=== PATIENT | female | born 1965 | race American Indian/Alaskan Native ===

== ENCOUNTER 2017-04-16 12:19 | Inpatient (IN) | payer OTHER ==
[2017-04-16 12:56] LABS: Basophils % (Auto) 0.4 % (0.0-1.8); Eosinophils % (Auto) 0.5 % (0.0-4.3); Mean Corpuscular HGB Conc 33 % (30-34); Mean Corpuscular Hemoglobin 26 pg (28-32); Mean Corpuscular Volume 81 fl (79-97); Platelet Count 280 K/mm3 (140-440); Red Blood Count 4.55 M/mm3 (3.65-5.03); Red Cell Distribution Width 14.5 % (13.2-15.2); White Blood Count 6.3 K/mm3 (4.5-11.0)
--- NOTE | 2017-04-16 12:56 | Cat Scan Report ---
CT HEAD WITHOUT CONTRAST INDICATION: Neurologic deficits. COMPARISON: None similar at this institution. FINDINGS: Noncontrast head CT demonstrates normal, symmetric ventricles and sulci without acute or recent infarct, hemorrhage, mass effect or midline shift. No abnormal extra-axial fluid collections. Posterior fossa structures and basilar cisterns appear within normal limits. Symmetric eye globes. Approximately 2.8 x 2.3 cm adenoids may be directly visualized. Clear paranasal sinuses and mastoid air cells. Intact calvarium. Normal overlying scalp soft tissues. Mid to lower cervical spondylosis. CONCLUSION: No acute intracranial CT abnormality, as described. Thank you for the opportunity to participate in this patient's care.
[2017-04-16 13:07] LABS: INR 0.99 (0.87-1.13); Partial Thromboplastin Time 31.2 Sec. (24.2-36.6)
[2017-04-16 13:15] LABS: Anion Gap 19 mmol/L; BUN/Creatinine Ratio 21.66; Blood Urea Nitrogen 13 mg/dL (7-17); Calcium 9.2 mg/dL (8.4-10.2); Carbon Dioxide 24 mmol/L (22-30); Chloride 102.5 mmol/L (98-107); Glucose 113 mg/dL (65-100); Potassium 3.8 mmol/L (3.6-5.0); Sodium 142 mmol/L (137-145)
[2017-04-16] MEDS ORDERED: ASPIRIN PO ONE (15:42)
--- NOTE | 2017-04-16 15:48 | Emergency Department Report ---
HPI - General Chief Complaint: Neuro Symptoms/Deficit Time Seen by Provider: 04/16/17 15:31 - HPI HPI: Room 6 The patient is a 51-year-old female presenting with a chief complaint of left- sided numbness and chest pain. Patient states her symptoms began 6 days ago with left arm and left leg numbness. The patient states 4 days ago she saw her biscuit packer was given a prescription of a muscle relaxer and pain medication. Patient states the medication only made her sleepy but her symptoms persisted. Patient states this morning at approximately 11:30 left arm and left leg numbness increased and she exhibited weakness on that side. The patient states she also developed substernal chest tightness associated with shortness of breath and nausea. Patient denies vomiting or diaphoresis. The patient gives her chest pain a score of 6-7/10 The patient states her last stress test occurred approximately 2 years ago she has never had a cardiac catheterization. Location: [see above] Duration: [see above] Quality: Tightness, numbness Severity: 6-7/10 Modifying factors: [see above] Context: [see above] Mode of transportation: Unknown ED Past Medical Hx - Past Medical History Hx Hypertension: Yes Hx GERD: Yes Hx Headaches / Migraines: Yes Additional medical history: TIA X 3. ENLARGED HEART - Surgical History Additional Surgical History: HYSTERECTOMY - Family History Family history: no significant - Social History Smoking Status: Never Smoker Substance Use Type: None (denies illicit drug use) - Medications Home Medications: Home Medications Medication Instructions Recorded Confirmed Last Taken Type Amlodipine/Valsartan/Hcthiazid 1 each PO QDAY 04/16/17 04/16/17 04/15/17 History [Exforge Hct 10-320-25 mg Tab] Atenolol [Tenormin] 100 mg PO DAILY 04/16/17 04/16/17 04/15/17 History Cyclobenzaprine [Flexeril] 10 mg PO TID 04/16/17 04/16/17 04/15/17 History Naproxen [Naprosyn] 500 mg PO BID 04/16/17 04/16/17 04/15/17 History ED Review of Systems ROS: Stated complaint: POSS STROKE Other details as noted in HPI Comment: All other systems reviewed and negative Constitutional: denies: chills, diaphoresis, fever Eyes: denies: eye pain, eye discharge, vision change ENT: denies: ear pain, throat pain Respiratory: shortness of breath Cardiovascular: chest pain Endocrine: no symptoms reported Gastrointestinal: denies: abdominal pain, nausea, diarrhea Genitourinary: denies: urgency, dysuria, discharge Musculoskeletal: denies: back pain, joint swelling, arthralgia Skin: denies: rash, lesions Neurological: weakness, numbness. denies: headache Psychiatric: denies: anxiety, depression Hematological/Lymphatic: denies: easy bleeding, easy bruising Physical Exam - Physical Exam Vital Signs: Vital Signs 04/16/17 12:25 Temperature 98.0 F Pulse Rate 87 Respiratory 18 Rate Blood Pressure 159/98 O2 Sat by Pulse 100 Oximetry Physical Exam: GENERAL: The patient is well-developed well-nourished female lying on stretcher not appearing to be in acute distress. [] HEENT: Normocephalic. Atraumatic. Extraocular motions are intact. Patient has moist mucous membranes. NECK: Supple. Trachea midline CHEST/LUNGS: Clear to auscultation. There is no respiratory distress noted. HEART/CARDIOVASCULAR: Regular. There is no tachycardia. There is no gallop rub or murmur. ABDOMEN: Abdomen is soft, nontender. Patient has normal bowel sounds. There is no abdominal distention. SKIN: There is no rash. There is no edema. There is no diaphoresis. NEURO: The patient is awake, alert, and oriented. The patient is cooperative. Cranial nerves II through XII grossly intact with exception of decreased sensation on the left V1, V2, V3 distribution. Decreased sensation left upper extremity and left lower extremity. There is no pronator drift. Patient exhibits trace difficulty flexing left lower extremity at the hip and knee against gravity. The patient has normal speech. Decreased sensation left arm and left leg MUSCULOSKELETAL: There is no evidence of acute injury. ED Course Vital Signs 04/16/17 12:25 Temperature 98.0 F Pulse Rate 87 Respiratory 18 Rate Blood Pressure 159/98 O2 Sat by Pulse 100 Oximetry ED Medical Decision Making - Lab Data Result diagrams: 04/16/17 12:41 04/16/17 12:41 Laboratory Tests 04/16/17 04/16/17 04/16/17 12:41 12:41 12:41 WBC 6.3 RBC 4.55 Hgb 12.0 Hct 37.0 MCV 81 MCH 26 L MCHC 33 RDW 14.5 Plt Count 280 Lymph % (Auto) 32.4 [place] % (Auto) 4.6 Eos % (Auto) 0.5 Baso % (Auto) 0.4 Lymph # 2.0 [place] # 0.3 Eos # 0.0 Baso # 0.0 Seg Neutrophils % 62.1 Seg Neutrophils # 3.9 PT 13.6 INR 0.99 APTT 31.2 Thrombin Time Sodium 142 Potassium 3.8 Chloride 102.5 Carbon Dioxide 24 Anion Gap 19 BUN 13 Creatinine 0.6 L Estimated GFR > 60 BUN/Creatinine Ratio 21.66 Glucose 113 H Calcium 9.2 Troponin T < 0.010 04/16/17 12:41 WBC RBC Hgb Hct MCV MCH MCHC RDW Plt Count Lymph % (Auto) [place] % (Auto) Eos % (Auto) Baso % (Auto) Lymph # [place] # Eos # Baso # Seg Neutrophils % Seg Neutrophils # PT INR APTT Thrombin Time 14.7 L Sodium Potassium Chloride Carbon Dioxide Anion Gap BUN Creatinine Estimated GFR BUN/Creatinine Ratio Glucose Calcium Troponin T - EKG Data -: EKG Interpreted by Me EKG shows normal: sinus rhythm Rate: normal - EKG Data When compared to previous EKG there are: previous EKG unavailable Interpretation: other (no ischemic changes seen) - Radiology Data Radiology results: report reviewed (CT head), image reviewed (CT head, chest x- ray) interpreted by me: Chest x-ray-no focal infiltrates, no pneumothorax CT head (read by radiologist)-no acute intracranial CT abnormality. - Differential Diagnosis CVA, ACS, pericarditis, GERD Critical care attestation.: If time is entered above; I have spent that time in minutes in the direct care of this critically ill patient, excluding procedure time. ED Disposition Clinical Impression: CVA (cerebral vascular accident), Chest pain Disposition: DC-[id number] OP ADMIT IP TO THIS HOSP Is pt being admited?: Yes Does the pt Need Aspirin: Yes Condition: Fair Instructions: Chest Pain (ED) Referrals: DR EDUARDO [Other] - 3-5 Days Time of Disposition: 15:49 (hospitalist paged)
--- NOTE | 2017-04-16 15:57 | Admit Criteria Form ---
Admission Criteria Documentation: NEUROLOGY GRG Clinical Indications for Admission to Inpatient Care (Place ' X' for any and all applicable criteria): Hospital admission is needed for appropriate care of the patient because of 1 or more of the following: [ ]I. Encephalitis [ ]II. Severe [employer] infections indicated by 1 or more of the following(1)(2)(3) : [ ]a) Intracranial abscess [ ]b) Spinal abscess or myelitis [ ]c) Tuberculous or other nonbacterial, nonviral [employer] infection(8) [ ]III. Vasculitis and 1 or more of the following(14)(15): []a) Altered mental status that is severe or persistent or other acute neurologic change []b) Psychosis []c) Seizure [ ]IV. Status epilepticus or repetitive seizures not controlled with emergent treatment [A] (7)(8) [ ]V. Altered mental status that is severe or persistent [ ]. Transient alteration in consciousness with high-risk etiology; examples include (12)(13): [ ]a) Cardiovascular source [ ]b) Cataplexy [ ]VII. Cerebral aneurysm requiring ANY ONE of the following(14): [ ]a) IV antihypertensives or vasoactive agents [ ]b) Sedation and analgesia for suspected leak [ ]c) Need for external ventricular drainage and cerebral perfusion pressure monitoring [ ]d) Emergent evaluation to determine need for surgical clipping or endovascular coiling by interventional radiology. If surgery is required ( Also use Craniotomy, Supratentorial, for Surgery of Bleeding Intracranial Aneurysm (for bleeding aneurysm) or Craniotomy, Supratentorial (for nonbleeding aneurysm) as appropriate. [ ]VIII. New-onset severe neurologic symptom requiring inpatient care indicated by ANY ONE of the following: [ ]a) Aphasia(15) [ ]b) Weakness (grade 3 or less) [ ]c) Paralysis (eg, hemiplegia) [ ]d) Spasticity(16) [ ]e) Dystonia [ ]e) Ataxia(17) [ ]f) Amnesia(18) [ ]g) Involuntary movements(19) [ ]h) Vertigo [ ] Visual loss [ ]i) Other severe neurologic finding (eg, papilledema, mass effect on imaging, myoclonus not treatable at alternative level of care (eg, observation care) [ ]IX. Guillain-Waddy syndrome(20) [ ]X. Myasthenia gravis crisis or inpatient monitoring need as indicated by 1 or more of the following(21): [ ]a) Intensive treatment (eg, course of plasmapheresis) with inadequate outpatient situation to monitor patients status [ ]b) Inadequate airway protection [ ]c) Respiratory insufficiency requiring intubation or inpatient. monitoring [ ]d) Progressive dysphagia with failure to thrive [ ]XI. Multiple sclerosis or other acute demyelinating disease requiring inpatient care as indicated by 1 or more of the following (22)(23): [ ]a) Acute severe deterioration requiring inpatient treatment (eg, IV steroids, plasmapheresis, close observation) [ ]b) Acute complication requiring inpatient care (eg, sepsis, severe decubitus, aspiration) [ ]XII.Parkinson disease requiring inpatient care (Also use Optimal Recovery Care Criteria or General Recovery Criteria as appropriate) indicated by 1 or more of the following(25): [ ]a) Infection (eg, aspiration pneumonia) not treatable at alternative level of care [ ]b Dehydration that is severe or persistent [ ]c) Life-threatening agitation or psychotic behavior not treatable on emergency, observation care, or alternative level (eg, residential) basis [ ]d) Severe medication withdrawal effects (eg, freezing, neuroleptic malignant syndrome) not responsive to emergency and observation care treatment ( as appropriate) [ ]e) Other severe manifestation not treatable at alternative level of care [ ]XII. Amyotrophic lateral sclerosis with inpatient care needs as indicated by ANY ONE of the following(26): [ ]a) Acute complications (eg, aspiration pneumonia, sepsis ) requiring inpatient care ( see other optimal Recovery Guideline as appropriate) [ ]b) Dehydration that is severe persistent AND artificial support desired [ ]c) Inadequate airway protection AND artificial support desired [ ]d) Severe ventilatory insufficiency AND artificial support desired [ ]XIII. Myasthenia gravis crisis or inpatient monitoring need as indicated by 1 or more of the following(21): [] a) Inadequate airway protection []b) Respiratory insufficiency requiring intubation or inpatient monitoring []c) Progressive dysphagia with failure to thrive []d) Intensive treatment (e.g., course of plasmapheresis) with inadequate outpatient situation to monitor patients status [ ]XIV. Multiple sclerosis or other acute demyelinating disease requiring inpatient care indicated by 1 or more of the following[C](36)(43)(44)(45)(46): []a) Acute severe deterioration requiring inpatient treatment (eg, IV steroids, plasmapheresis, close observation) []b) Acute complication requiring inpatient care (eg, sepsis, severe decubitus, aspiration) [ ]XV. Intracranial hypertension (e.g., pseudotumor cerebri) requiring inpatient care (e.g., acute visual loss, inadequate oral intake) (47)(48)(49) [ ]XVI. Parkinson disease requiring inpatient care (Also use Optimal Recovery Care Criteria or General Recovery Criteria as appropriate) indicated by 1 or more of the following(25): [] a) Infection (e.g., aspiration pneumonia) not treatable at alternative level of care []b) Volume depletion not responsive to emergency and observation care treatment (as appropriate) []c) Life-threatening agitation or psychotic behavior not treatable on emergency, observation care, or alternative level (e.g., residential) basis []d) Severe medication withdrawal effects (e.g., freezing, neuroleptic malignant syndrome) not responsive to emergency and observation care treatment (as appropriate) []e) Other severe manifestation not treatable at alternative level of care [ ]XVII. Amyotrophic lateral sclerosis with inpatient care needs as indicated by1 or more of the following(42): []a) Acute complications (eg, aspiration pneumonia, sepsis) requiring inpatient care (see other Optimal Recovery Guideline or General Recovery Guideline as appropriate) []b) Dehydration that is severe or persistent AND artificial support desired []c) Inadequate airway protection AND artificial support desired []d) Severe ventilatory insufficiency AND artificial support desired [ ]XVIII. Severe myopathy, neuropathy, or other neuromuscular disease indicated by 1 or more of the following(42)(52)(53)(54): []a ) New-onset severe diffuse weakness (eg, strength 3/5 or less) []b) Severe dysphagia []c) Dyspnea at rest or with minimal exertion (new) []d) Inadequate airway protection []e) Inadequate ventilation indicated by 1 or more of the following : i) Partial pressure of carbon dioxide greater than 44 mm Hg ( 5.9 kPa) (new) ii) Reduced peak expiratory flow rate (new) iii) Vital capacity less than 50% of predicted (less than 15 mL/kg) iv) Peak inspiratory force less negative than -30 cm H2O (- 2942 Pa) [ ]XVII.Complications of congenital or degenerative disease (eg, infection, seizures, dehydration, injury) not responsive to emergency and observation care treatment (as appropriate ) [C](16)(29)(30) [ ]XVIII.Suspected or confirmed nerve or muscle toxic injury, including ANY ONE of the following: [ ]a) Rhabdomyolysis(31) i) Acute renal failure ii) Dehydration that is severe or persistent iii) Altered mental status that is severe or persistent iv) Electrolyte abnormality that remains after emergency or observation level care ( as appropriate) [ ]b) Botulism(32) [ ]c) Other severe toxin-induced sign or symptom [ ]XIX. Neurologic trauma requiring inpatient treatment (medical) indicated by ANY ONE of the following(33)(34): [ ]a) Vital signs or neurologic signs more frequently than every 4 hours [ ]b) Hyperosmolar therapy [ ]c) Respiratory monitoring [ ]d) Intracranial pressure monitoring and treatment [ ]e) Stabilization and immobilization device placement (eg, braces, body jacket) [ ]f) Intubation & mechanical ventilation for airway protection or therapeutic hyperventilation [ ]g) Other treatment or monitoring needed that requires inpatient level of care [ ]XX.Complications of neurologic devices (eg, ventricular shunt, neurostimulator) requiring 1 or more of the following(35)(36): [ ]a) IV antibiotics with monitoring while awaiting culture results [ ]b) Monitoring for hydrocephalus [X]XXI. Neurology condition symptom, or finding for which emergency and observation care have failed or are not considered appropriate. See General Criteria: Observation Care ISC, General Admission Criteria GRG, or Pediatric General Admission Criteria GRG guideline as appropriate. The original [facility] [employer] content created by [email or web address] has been revised. The portions of the content which have been revised are identified through the use of italic text or in bold, and [facility] has neither reviewed nor approved the modified material. All other unmodified content is copyright [facility] Please see references footnoted in the original [facility] edition 2016 Admission Criteria Met: Yes
--- NOTE | 2017-04-16 16:31 | XRay Report ---
CHEST ONE VIEW INDICATION: Chest pain. COMPARISON: None similar. FINDINGS: Portable, single, frontal chest radiograph demonstrates normal cardiomediastinal silhouette. Clear lungs. Unremarkable bones. Extrinsic EKG leads. CONCLUSION: No acute disease in the chest. Thank you for the opportunity to participate in this patient's care.
[2017-04-16] MEDS ORDERED: MORPHINE IV PRN (17:15)
[2017-04-16] MEDS ORDERED: NON-FORMULARY (Atenolol [Tenormin] 100 MG) PO SCH (17:30)
[2017-04-16] MEDS ORDERED: LOVENOX SUB-Q SCH (18:00)
[2017-04-16 18:52] LABS: Creatine Kinase 170 units/L (30-135)
[2017-04-16] MEDS: TENORMIN PO SCH ×2 (19:02→22:16)
[2017-04-16 19:03] LABS: Creatine Kinase MB < 1.0 ng/mL (0.0-4.0)
[2017-04-16] MEDS: NACL 0.45% 1000 ML 1,000 ML IV SCH (21:15)
--- NOTE | 2017-04-16 22:31 | History and Physical Report ---
History of Present Illness Date of examination: 04/16/17 Date of admission: 04/16/17 15:50 Chief complaint: Weakness and numbness on the left upper and lower extremity, chest pain and tightness. - One day duration History of present illness: Patient is a 51-year-old lady who has a history of hypertension, multiple TIAs in the past and cardiomegaly started having numbness or weakness in the left upper and lower extremities today while at home. [place] like she had a heavy load on the left upper and lower extremity for which she was having difficulty raising them. Was associated with weakness, chest tightness, shortness of breath. Had nausea but no vomiting. Denies any facial droop. No dysphagia, does not have any headaches nausea or vomiting. Denies any fever or chills. CT scan of the brain in emergency department was unremarkable. Admission was therefore requested for further evaluation and management Past History Past Medical History: hypertension, other (TIAs x 3) Past Surgical History: No surgical history (TIAs) Social history: denies: smoking, alcohol abuse, prescription drug abuse Family history: no significant family history, hypertension, stroke Medications and Allergies Allergies Allergy/AdvReac Type Severity Reaction Status Date / Time No Known Allergies Allergy Unverified 04/16/17 12:23 Home Medications Medication Instructions Recorded Confirmed Last Taken Type Amlodipine/Valsartan/Hcthiazid 1 each PO QDAY 04/16/17 04/16/17 04/15/17 History [Exforge Hct 10-320-25 mg Tab] Atenolol [Tenormin] 100 mg PO DAILY 04/16/17 04/16/17 04/15/17 History Cyclobenzaprine [Flexeril] 10 mg PO TID 04/16/17 04/16/17 04/15/17 History Naproxen [Naprosyn] 500 mg PO BID 04/16/17 04/16/17 04/15/17 History Active Meds: Active Medications Aspirin (Aspirin) 325 mg PO QDAY [facility] Atenolol (Tenormin) 100 mg PO QDAY [facility] Last Admin: 04/16/17 22:16 Dose: 100 mg Enoxaparin Sodium (Lovenox) 40 mg SUB-Q DAILY@2200 [facility] Last Admin: 04/16/17 18:56 Dose: 40 mg Sodium Chloride (Nacl 0.45% 1000 Ml) 1,000 mls @ 75 mls/hr IV DIRECT LISSETH Last Admin: 04/16/17 21:15 Dose: 75 mls/hr Morphine Sulfate (Morphine) 2 mg IV Q4H PRN PRN Reason: Pain, Moderate (4-6) Last Admin: 04/16/17 22:16 Dose: 2 mg Nitroglycerin (Nitro-Bid 2%) 0.5 inch TP BIDNTG LISSETH PRN Reason: Protocol Review of systems Constitutional: Well Nouridhed and Well developed. Head: NC/ AT Eyes: Denies any visual impairments. No discharge from the eyes Nose: Denies any rhinorrhea or epistaxis Throats: Denies any post nasal drainage. Ears: Denies any hearing deficits Cardiovascular system: Denies any chest pain, shortness of breath, orthopnea, paroxysmal nocturnal dyspnea, or palpitation. Respiratory system: Denies any cough, difficulty breathing, wheezing, pleuritic chest pain, Gastrointestinal system: Denies any abdominal pain, nausea vomiting, hematemesis or melena. Neurological system: Denies any headache, slurred speech, facial droop, has left lateralizing weakness Genitalia system: Denies any dysuria, urinary frequency or urgency, urethral discharge Skin: No rashes, hyperpigmented spots. Hematological: Denies any cervical tenderness hemorrhages or petechia. Immunological: Denies any multiple septic spots, Lymphatic: Denies any generalized lymphadenopathy. Endocrine: Denies any polyuria, polydipsia, polyphagia. No heat or cold intolerance. Musculoskeletal system: No joint pain or swelling. Psych: No visual, tactile, auditory or hallucination Exam - Constitutional Vitals: Temp Pulse Resp BP Pulse Ox 98.3 F 72 18 114/84 97 04/16/17 20:00 04/16/17 20:00 04/16/17 20:00 04/16/17 20:00 04/16/17 20:53 General appearance: Present: no acute distress, well-nourished - EENT Eyes: Present: PERRL - Neck Neck: Present: supple, normal ROM - Respiratory Respiratory effort: normal Respiratory: bilateral: CTA - Cardiovascular Heart Sounds: Present: S1 & S2. Absent: rub, click - Extremities Extremities: pulses symmetrical, No edema Peripheral Pulses: within normal limits - Abdominal General gastrointestinal: Present: soft, non-tender, non-distended, normal bowel sounds - Integumentary Integumentary: Present: clear, warm, dry - Musculoskeletal Musculoskeletal: left sided weakness - Psychiatric Psychiatric: appropriate mood/affect, intact judgment & insight - Neurologic Neurologic: CNII-XII intact, moves all extremities Results - Labs CBC & Chem 7: 04/16/17 12:41 04/16/17 12:41 - Imaging and Cardiology EKG: report reviewed Assessment and Plan - Possible stroke with left hemiparesis - Hypertension - Hyperglycemia - GERD Plan Admit to ICU, obtain MRI of the brain and MRA of the brain and the neck Commence patient on oxygen to maintain sats greater than 94%, aspirin, atorvastatin, Neuro check every 4hr PT OT ST evaluation and treatment Optimize blood pressure control by commencing home oral antihypertensives medication Which check A1c for hyperglycemia Commence patient on Pepcid DVT prophylaxis until ambulatory Lovenox 30 minutes in direct patient care, evaluation of laboratory and radiological data during this admission process
[2017-04-17 01:40] LABS: Creatine Kinase 157 units/L (30-135)
[2017-04-17 01:42] LABS: Creatine Kinase MB < 1.0 ng/mL (0.0-4.0)
[2017-04-17 05:48] LABS: Creatine Kinase 145 units/L (30-135)
[2017-04-17] MEDS: NITRO-BID 2% TP SCH ×2 (05:53→14:30)
[2017-04-17 05:56] LABS: Creatine Kinase MB < 1.0 ng/mL (0.0-4.0)
[2017-04-17] MEDS ORDERED: ASPIRIN PO SCH (10:00)
--- NOTE | 2017-04-17 10:06 | Magnetic Resonance Report ---
MRI BRAIN WITHOUT CONTRAST: 04/17/17 CLINICAL: Stroke. TECHNIQUE: Axial diffusion, T1, T2, FLAIR, gradient echo T2*, and sagittal T1 sequences on a 1.5 Ale magnet. FINDINGS: Normal ventricles and sulci. No restricted diffusion. No mass or mass effect. No hemorrhage, edema or extra-axial collection. Normal pituitary and optic chiasm. The brainstem and cerebellum are normal. Intact vascular flow voids. Normal sinuses. The orbits, and soft tissues are normal. Normal calvarium and skull base. IMPRESSION: Normal study. No evidence of acute/subacute infarct or hemorrhage..
--- NOTE | 2017-04-17 10:08 | Magnetic Resonance Report ---
MRA HEAD WITHOUT CONTRAST: 04/16/17 15:50:00 CLINICAL: Stroke. TECHNIQUE: Axial 3-D [id number] MR angiography of the [place] with review of axial source images. FINDINGS: Intact [place] with no aneurysm, stenosis or occlusion. Symmetric blood flow in the anterior, middle and posterior cerebral arteries. Normal basilar and left vertebral arteries. Long stenosis of the distal right vertebral artery. The right vertebral artery is smaller than the left. IMPRESSION: Normal except for stenosis of the distal right vertebral artery.
[2017-04-17] MEDS: TENORMIN PO SCH (11:07)
[2017-04-17 11:09] VITALS: BP 146/82
[2017-04-17] MEDS: NACL 0.45% 1000 ML 1,000 ML IV SCH (11:56)
--- NOTE | 2017-04-17 12:18 | Discharge Summary ---
Providers - Providers Date of Admission: 04/16/17 15:50 Date of discharge: 04/17/17 Attending physician: JOSE ALEJANDRO CLARK MD 04/16/17 17:16 Consult to Dietitian/Nutrition [CONS] Routine Physician Instructions: Reason For Exam: Reason for Consult: Nutrition Recommendations Reason for Consult: Diet education Occupational Therapy Evaluate and Treat [CONS] Routine Comment: Reason For Exam: Neuro deficits Physical Therapy Evaluation and Treat [CONS] Routine Comment: Reason For Exam: Neuro deficits Hospitalization Reason for admission: left upper extremity paresthesia/ chest pain Condition: Stable Hospital course: Patient is a 51 history of hypertension, multiple TIAs in the past and cardiomegaly started having numbness or weakness in the left upper and lower extremities that has been going on for about 1 week, Patient also states that she's had some chest tightness which has resolved. Chest type pressure is a 3/ 10 in intensity reproducible over the left submammary area. With no alleviating factors likely related by pressure. Denies any nausea vomiting or diaphoresis orthopnea. She follows closely with the sales assistant. She's never had any cardiac events in the past. Advised that if she does need a stress test and not to take in any strenuous activity until the stress test is done and she seen by her sales assistant. She does not have any risk factors except for family history of diabetes which she herself does not have. Imaging studies included MRI of the head were negative. Considering negative imaging studies the duration of her symptoms have recommended evaluation by primary care physician to ensure that she does not have any survival stenosis. On physical exam there was a nonfocal exam. - Left upper lower extremity paresthesias possible secondary to radiculopathy - Hypertension - Hyperglycemia - GERD - Atypical chest pain-reproducible possible costochondritis Disposition: TO HOME OR SELFCARE Time spent for discharge: 35 mins Core Measure Documentation - Palliative Care Palliative Care/ Comfort Measures: Not Applicable - Core Measures Any of the following diagnoses?: none - VTE Discharge Requirements Deep Vein Thrombosis/Pulmonary Embolism Present on Admission: No Exam - Physical Exam Narrative exam: VITAL SIGNS: Reviewed. GENERAL: The patient appeared well nourished and normally developed. Vital signs as documented. HEAD: No signs of head trauma. EYES: Pupils are equal. Extraocular motions intact. EARS: Hearing grossly intact. MOUTH: Oropharynx is normal. NECK: No adenopathy, no JVD. CHEST: Chest with clear breath sounds bilaterally. No wheezes, rales, or rhonchi. CARDIAC: Regular rate and rhythm. S1 and S2, without murmurs, gallops, or rubs. VASCULAR: No Edema. Peripheral pulses normal and equal in all extremities. ABDOMEN: Soft, without detectable tenderness. No sign of distention. No rebound or guarding, and no masses palpated. Bowel Sounds normal. MUSCULOSKELETAL: Good range of motion of all major joints. Extremities without clubbing, cyanosis or edema. NEUROLOGIC EXAM: Alert and oriented x 3. No focal sensory or strength deficits. Speech normal. Follows commands. PSYCHIATRIC: Mood normal. SKIN: No rash or lesions. - Constitutional Vitals: Temp Pulse Resp BP Pulse Ox 97.8 F 63 18 146/82 98 04/17/17 08:25 04/17/17 11:07 04/17/17 08:25 04/17/17 11:07 04/17/17 08:25 Plan Activity: advance as tolerated, fall precautions Diet: low fat Special Instructions: record daily BP diary Additional Instructions: Follow with patients primary cardiology Follow up with: DR EDUARDO [Other] - 3-5 Days Prescriptions: Famotidine [Pepcid] 40 mg PO QHS #30 tablet Ibuprofen [Motrin 800 MG tab] 800 mg PO Q8HR PRN #14 tablet PRN Reason: Pain
--- NOTE | 2017-04-23 08:59 | Vascular Lab Report ---
CAROTID DUPLEX STUDY: RIGHT PSVEDV CCA PROX:103 6 CCA DIST:[id number] ICA PROX: 5617 ICA MID:[id number] ICA DIST:[id number] ECA: 766 VERT: 60 18 LEFT PSVEDV CCA PROX:[id number] CCA DIST: 9621 ICA PROX: 8323 ICA MID:[id number] ICA DIST:[id number] ECA: 838 VERT: REASON FOR EXAM: Stroke. COMMENTS ON THE RIGHT: Doppler frequency analysis is consistent with 16 to 49 percent diameter reduction of the internal carotid artery. Minimal amount of plaque is seen. The common carotid artery is patent. The external carotid artery is patent. The vertebral artery has antegrade flow. COMMENTS ON THE LEFT: Doppler frequency analysis is consistent with 16 to 49 percent diameter reduction of the internal carotid artery. Minimal amount of plaque is seen. The common carotid artery is patent. The external carotid artery is 58. The vertebral artery has 19 flow. IMPRESSION: Less than 50% diameter reduction in the internal carotid arteries bilaterally. Consider repeat carotid artery duplex in 12 months.103
== END 2017-04-17 15:00 | disposition home or self-care (01) | DRG 74 ==
LOC: ED 12:19 → 4A 15:50
PROVIDERS: ADMIT Family Medicine; ATTEND Internal Medicine
DX: M54.10 Radiculopathy, site unspecified (principal); G81.94 Hemiplegia, unspecified affecting left nondominant side; M94.0 Chondrocostal junction syndrome [Tietze]; I10 Essential (primary) hypertension; R20.8 Other disturbances of skin sensation; R73.9 Hyperglycemia, unspecified; K21.9 Gastro-esophageal reflux disease without esophagitis; G43.909 Migraine, unspecified, not intractable, without status migrainosus; Z86.73 Personal history of transient ischemic attack (TIA), and cerebral infarction without residual deficits; Z90.710 Acquired absence of both cervix and uterus
CPT/HCPCS: 36415; 70450; 70544; 70551; 71010; 80048; 82550; 82553; 83036; 84484; 85025; 85610; 85670; 85730; 93005; 93010; 93880; 96372; J1650; J2270